=== PATIENT | female | born 1965 | race Caucasian/White ===

== ENCOUNTER 2020-01-14 13:56 | Outpatient (CLI) | payer BC, SELFPAY ==
--- NOTE | 2020-01-14 12:15 | DI.RAD_ITS ---
EXAM: XR HIP LT COMPLETE AP PELVIS CLINICAL HISTORY: pre op BROOK. TECHNIQUE: 2D digital imaging was performed. COMPARISON: CR CR HIP L 2V from 08/19/2019 FINDINGS: BONES: No acute fracture is present. No bony destructive lesion is seen. JOINTS: No dislocation present. Stable degenerative changes are seen about the hips bilaterally. SOFT TISSUE: Normal. IMPRESSION: Stable degenerative changes are seen in the hips. DATA REPOSITORY: RADIATION DOSE DELIVERED:
== END 2020-01-14 14:16 ==
PROVIDERS: PCP Family Medicine; Referring Provider Family Medicine; Visit Provider Physician Assistant
DX: M16.0 Bilateral primary osteoarthritis of hip (principal)
CPT/HCPCS: 73502

== ENCOUNTER 2020-01-22 02:55 | Outpatient (CLI) | payer BC, SELFPAY ==
[2020-01-22 10:29] LABS: HCT 37.6 % (36.0-46.0); HGB 12.6 g/dL (11.2-15.7); MCH 28.1 pg (27.0-33.0); MCHC 33.5 % (32.0-36.0); MCV 83.7 fL (80-95); Platelet Count 380 10^3/uL (130-400); RBC 4.49 10^6/uL (3.93-5.22); RDW-SD 40.1 fL; WBC 4.58 10^3/uL (4.4-10.8)
[2020-01-22 11:33] LABS: Anion Gap 5.7 mmol/L (3-11); BUN 12 mg/dL (7-18); CO2 27.3 mmol/L (21.0-32.0); CREATININE 0.83 mg/dL (0.55-1.02); Chloride 108 mmol/L (98-107); Glucose 85 mg/dL (74-106); Potassium 4.8 mmol/L (3.5-5.1); Sodium 141 mmol/L (136-145)
--- NOTE | 2020-01-25 14:37 | CMPROGNOTE_ITS ---
- If Service Date Differs Date of service: 01/25/20 Time of Service: 14:37 Care Management Progress Note S/O: PETE contacted Brenna over the phone she states she will need a new FWW. She has good support at home and does not anticipate any need for home health services. She states she does have a advance directive and will bring it to the hospital with her. She does have a question about transportation home by her spouse and wondering what time he should be here. PETE reviewed recovery time cee price. DSU will call and provide update after surgery and coordinate time with family member. P: Brenna will need a new FWW at time of discharge. PETE contacted [facility] Surgery and spoke with Joslyn ANGUIANO to review process.
== END 2020-01-22 03:15 ==
PROVIDERS: PCP Family Medicine; Visit Provider Student in an Organized Health Care Education/Training Program
DX: M94.252 Chondromalacia, left hip (principal); Z01.818 Encounter for other preprocedural examination; Z01.812 Encounter for preprocedural laboratory examination
CPT/HCPCS: 36415; 80048; 85027; 86850; 86900; 86901

== ENCOUNTER 2020-01-22 02:55 | Outpatient (CLI) | payer BC, SELFPAY ==
[2020-01-23 12:03] LABS: SARS-CoV-2 RNA Source Nasal/Nares
[2020-01-23 12:04] LABS: SARS-CoV-2 RNA Not Detected (NotDetected)
== END 2020-01-22 03:15 ==
PROVIDERS: PCP Family Medicine; Visit Provider Student in an Organized Health Care Education/Training Program
DX: Z11.59 Encounter for screening for other viral diseases (principal); Z01.818 Encounter for other preprocedural examination
CPT/HCPCS: U0003

== ENCOUNTER 2020-01-26 06:01 | Day surgery (SDC) | payer BC, SELFPAY ==
[2020-01-26] VITALS (7 sets, daily range): BP systolic 94–115; BP diastolic 46–58; PULSE 65–78; RESP 15–17; TEMP 36.3–36.6; O2SAT 96–99
[2020-01-26] MEDS: Acetaminophen 500 MG TAB 1000 MG PO (07:02)
[2020-01-26] MEDS: Lactated Ringers 1,000 ML 80 ML IV (07:03)
[2020-01-26] MEDS: Celecoxib 200 MG CAP 400 MG PO (07:03)
[2020-01-26] MEDS: ceFAZolin 2 GM/50 ML BAG IVPB (07:51)
[2020-01-26] MEDS: Ketorolac 30 MG/ML VIAL (08:55)
[2020-01-26] MEDS: Bupivacaine 0.25% Pres-Free 30 ML VIAL (08:55)
--- NOTE | 2020-01-26 09:05 | ROE_ITS ---
Date of service: 01/26/20 Time of Service: 09:05 Operative Note Operative Note DATE OF PROCEDURE: 01/26/20 PRE-OP DIAGNOSIS: Left Hip Femoroacetabular Impingement and Chondromalacia POST-OP DIAGNOSIS: same PROCEDURE: Left Anterior Total Hip Arthroplasty SURGEON: Silas Bailey NUCLEAR MEDICINE CHIEF TECHNOLOGIST: Brooklyn Ballard ANESTHESIA: spinal ESTIMATED BLOOD LOSS: 200 PATHOLOGY: none sent TOURNIQUET TIME: 0 COMPLICATIONS: None Patient was transported to: PACU Patient's condition: stable Implants: 1. Depuy [place] Acetabular Component, 50mm 2. Depuy Acetabular Liner, [id number] 3. Depuy Corail Short Neck Collared Femoral Stem, Size 11 4. Depuy Altrx Ceramic Femoral Head, Size 32+5mm Indications: I have seen Brenna Hillman in clinic for symptoms of hip arthritis, confirmed with radiographic findings. She has exhausted nonoperative methods and was having significant limitations in daily function and desired better function and less pain. I discussed the technical details of a hip replacement. I explained the risks of the procedure to include, but not limited to, bleeding, infection, pain, stiffness, fracture, damage to nerves and vessels, damage to muscles and tendons, loosening, instability, leg length inequality, need for repeat procedure, blood clot and cardiopulmonary demise. Despite these risks, Brenna Hillman elected to proceed. Findings: There was a focal area of complete loss of cartilage over the superior femoral head with wear of the superior acetabulum. Procedure Description: Brenna Hillman was greeted in the preoperative holding area where the correct side was identified and marked. The consent was reviewed with the patient and signed. The history and physical was updated. All questions were answered. She was taken back to the operating room. A spinal anesthestic was then administered. The feet were wrapped with cast padding and Coban and then placed into the boot liners and then into the boots. Care was taken to protect the skin and make sure the heels were fully down and the boots were stable. The patient was then positioned onto the HANA table. Both legs were held in a neutral position. SCDs were applied. The patient was then slid down onto a peroneal post. A preoperative AP pelvis was obtained to serve as a reference for determining leg lengths. Prophylactic antibiotics in the form of Cefazolin were administered. 1g of Tranxemic Acid was given intravenously within 30 minutes of incision. The left leg was then prepped with Chloraprep and draped in a standard fashion. A second prep with Chloraprep was performed prior to placement of a shower-curtain type drape with Iodine impregnated skin protection. A timeout to confirm correct identity, side and site, procedure, allergies, anesthesia, and medical concerns was performed. An obliquely oriented incision was made starting lateral to the ASIS and running distal over the Tensor Fascia Maria Del Rosario (TFL) muscle belly toward the fibular head, approximately 10cm. The skin and soft tissue was dissected sharply, through Preeti?s fascia, and to the fascia of the TFL. With the fascia and superior border of the IT band identified, the fascia was incised with a new knife just above any perforators from the IT band. The TFL muscle belly was bluntly dissected away from the fascia and moved laterally. The fat between TFL and rectus was identified to ensure the dissection was not within the TFL. Blunt dissection created space between abductors and the capsule and retractor was placed over the lateral femoral neck. The fibers of the rectus femoris tendon were identified and these were freed from the anterior capsule. A second cobra retractor was placed around the medial femoral neck. The TFL was further retracted laterally to show the deep fascia. Careful dissection through this layer identified three main crossing vessels of the lateral femoral circumflex. These were cauterized in multiple locations and then cut without any noticeable bleeding. The TFL was further released bluntly from the deep fascia to expose anterior hip capsule and fat The Slim orthopaedic retractor was then placed beneath the TFL and against sartorius and medial soft tissues to protect and retract the soft tissues. A T-capsulotomy was then performed starting at the superior lateral acetabulum and moving distally to the intertrochanteric ridge. These capsular flaps were tagged with a No. 1 Ethibond and elevated from within. The capsular flaps were released to the shoulder of the lateral neck and to the lesser trochanter to give excellent visualization of the proximal femur. A neck osteotomy was performed using an oscillating saw based on preoperative templates. This cut started in the shoulder and of the lateral neck and exited medially. The saw was at all times directed medially to avoid injury to the greater trochanter. 6cm of traction was applied to the leg and the osteotomy opened. The femoral head was removed with a corkscrew, making sure to protect the TFL on its exit. Traction was released after head removal. This was measured on the back table to determine the starting reamer size. Portions of the rectus obscuring visualization were minimally elevated off the superior acetabulum. An anterior retractor was placed over the anterior wall between capsule and labrum and attached to the Gripper retraction system. The femur was rotated to 90 degrees and medial capsule was fully released until the lesser trochanter was palpable and visible; the femur was returned to 30 degrees. A posterior retractor was placed similarly between capsule and labrum. This provided excellent visualization. The contents of the cotyloid fossa were removed with electrocautery and the labrum was removed with a knife. There was chondromalacia of the superior acetabulum. Acetabular reaming began with a 46mm reamer. This first reaming was directed anterior to posterior and medial to get down to the true floor. This was inspected and reamed until the true floor was reached. The anterior retractor was then released and entry and exit was provided by traction on the capsular flaps. I then reamed sequentially up to a 49mm reamer where good fit was obtained. The larger reamers were oriented based on anatomical reference of the anterior and lateral laureano to ensure proper abduction and anteversion. Positioning and size was confirmed with the fluoroscopy. A 50mm Depuy [place] acetabular component was selected. The acetabulum was reamed around the periphery with the selected acetabular size to prevent a rim fit. The deep tissues were irrigated. The acetabular component was then impacted in a position of about 40-45 degrees of abduction and 15-20 degrees of anteversion, using the patient?s anatomy as the ultimate landmark. Fluoroscopy was used to confirm this. There was excellent digital composer of the acetabular component and the inserting handle was removed. The acetabular liner, Depuy [id number] polyethylene liner, was inserted and lined up with the tines of the acetabular component. There was no soft tissue interposition. The liner was then impacted into position and confirmed to be well-seated. A portion of the torrey-articular cocktail was then injected around the acetabulum into the capsule and periosteum. This cocktail consisted of 50cc of 0.25% Bupivicaine and 20cc of Exparel and 30mg of Ketorolac. The leg was rotated to 120 degrees. Any remaining medial capsule was released until the lesser trochanter was easily palpable. A retractor was placed medially. The lateral capsule was further released into the shoulder to allow access to the greater trochanter. A Healy retractor was placed over the greater trochanter which allowed the trochanter to flip in front of the capsule for excellent exposure. The leg was brought down into maximal extension and 20 degrees of adduction while ensuring there was no impingement on the acetabulum. Any remnant capsule within the trochanter was released. Piriformis and obturator externis were identified and protected. There was excellent access to the proximal femur. The lateral neck remnant was removed with a rongeur. A blunt canal probe was used to identify the canal and trajectory for later broaching. A box osteotome initiated the broach course. A small curved rasp and a curved curette were used to work laterally. Broaching then began with a size 8 Corail broach. This was inserted manually around the trochanter and into the canal before mallet blows. The broach was seated to a few millimeters below the cut level based on the neck cut and the preoperative template. Sequential broaching was continued with the [employer]se pneumatic broaching device until a tight fit was obtained with good rotational control of the femur. A trial short neck collared neck was inserted along with a +5 trial head. The leg was brought out of extension and adduction and then reduced with traction and internal rotation. The leg was stable anteriorly in a position of 30 degrees of extension and 90 degrees of external rotation. Fluoroscopy was used to ensure there was no fracture and the stem was seated well. Leg lengths were checked with an AP pelvis and pelvic reference points. DP7 Digital navigation system was used to confirm appropriate positioning and leg length and offset. Once content with the desired offset and leg lengths, the leg was brought back into extension, external rotation and adduction. The periosteum and surrounding tissue was injected with remaining portion of the torrey-articular cocktail. The proximal femur was irrigated as well as the deep tissues. The Depuy Corail short neck collared stem, size 11, was then manually inserted into the proximal femur making sure to control rotation. It was then malleted into position with light blows, giving breaks to allow bone expansion and decrease risk of fracture. The selected Depuy Altrx Ceramic Head, size 32+5mm, was then placed onto the clean and dry trunnion and secured with impaction onto the tapered fit. The leg was brought back out of extension and adduction and reduced with traction and internal rotation. Stability was confirmed with no shuck at 90 degrees of external rotation and 30 degrees of extension. No impingement through range of motion arc. Final x-ray images were obtained with fluoroscopy to confirm adequate positioning and no intraoperative fracture. The deep tissues were thoroughly irrigated with Irrisept chlorhexadine solution. The second dose of TXA 1g was administered intravenously.The capsule was then reapproximated with the previously placed Ethibond sutures. The TFL fascia was finally closed with a No. 2 Stratafix, barbed suture. Deep tissues were then reapproximated with 0 Vicryl and a running 2-0 Vicryl. The skin was closed with a running 4-0 Monocryl in a subcuticular fashion. This was reinforced with skin glue. A Mepilex silver dressing was applied. At the end of the case, all counts were correct. Brenna Hillman was transferred to the hospital bed without difficulty and suffering no apparent complication. She has a good prognosis. Physical therapy will start today and without restrictions, weight-bearing as tolerated. Aspirin 81mg BID will be used for DVT prophylaxis.
--- NOTE | 2020-01-26 09:05 | DI.RAD_ITS ---
EXAM: XR HIP LT IN OR CLINICAL HISTORY: Femoroacetabular impingement, chondromalcia, L hip TECHNIQUE: 2D and realtime digital imaging was performed. COMPARISON: No exams were available for comparison FINDINGS: C-arm fluoroscopy was utilized by Dr. Bailey during placement of a left hip prosthesis. Hard copie s show the prosthesis in place. Fluoro time 55 seconds. IMPRESSION: RADIATION DOSE DELIVERED: Total DLP
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
== END 2020-01-26 13:30 | disposition home or self-care (01) ==
LOC: PDS 12:37 → DSU 01-29 12:51
PROVIDERS: PCP Family Medicine; Visit Provider Student in an Organized Health Care Education/Training Program
PROC: (CPT 27130; principal; 2020-01-26 07:30)
DX: M16.12 Unilateral primary osteoarthritis, left hip (principal); G43.909 Migraine, unspecified, not intractable, without status migrainosus
CPT/HCPCS: 27130; 20985; C1776; 97162; 97530; NC; 73501; J0690; J1100; J1885; J2250; J2405; J2704

== ENCOUNTER 2020-02-11 11:17 | Outpatient (CLI) | payer BC, SELFPAY ==
--- NOTE | 2020-02-11 09:45 | DI.RAD_ITS ---
EXAM: XR HIP LT COMPLETE AP PELVIS CLINICAL HISTORY: 1ST POST OP L BROOK TECHNIQUE: COMPARISON: CR XR HIP LT COMPLETE AP PELVIS from 01/14/2020 FINDINGS: Two views were obtained. There is a total hip joint prosthesis in position on the left. The compone nts appear well seated. There are mild degenerative changes of the right hip. No other significant bony abnormality seen. IMPRESSION: RADIATION DOSE DELIVERED: Total DLP
== END 2020-02-11 11:37 ==
PROVIDERS: PCP Family Medicine; Referring Provider Family Medicine; Visit Provider Student in an Organized Health Care Education/Training Program
DX: Z96.642 Presence of left artificial hip joint (principal); M16.11 Unilateral primary osteoarthritis, right hip
CPT/HCPCS: 73502

== ENCOUNTER 2020-04-21 11:46 | Outpatient (CLI) | payer BC, SELFPAY ==
--- NOTE | 2020-04-21 11:15 | DI.RAD_ITS ---
EXAM: XR HIP LT AP LAT ONLY CLINICAL HISTORY: eval L BROOK. TECHNIQUE: 2D digital imaging was performed. COMPARISON: CR XR HIP LT COMPLETE AP PELVIS from 02/11/2020 FINDINGS: Position alignment of the components of the left hip prosthesis remain stable with no fracture or loo sening. There is no radiographic evidence of osteomyelitis. IMPRESSION: DATA REPOSITORY: RADIATION DOSE DELIVERED:
--- NOTE | 2020-04-21 11:30 | DI.RAD_ITS ---
EXAM: XR LUMBAR SPINE COMPLETE CLINICAL HISTORY: eval L LBP. TECHNIQUE: 2D digital imaging was performed. COMPARISON: No exams were available for comparison FINDINGS: There is a left hip prosthesis. There is evidence of prior surgery at in the lower LS spine with removal of posterior osseous element s at L5. There is disc space narrowing at both L4-5 and L5-S1 levels. Other disc spaces exhibit nor mal height. No pars defects. Facet joints appear unremarkable. Sacroiliac joints unremarkable. IMPRESSION: DATA REPOSITORY: RADIATION DOSE DELIVERED:
== END 2020-04-21 11:47 | disposition home or self-care (01) ==
LOC: DIORS 11:46
PROVIDERS: PCP Family Medicine; Referring Provider Family Medicine; Visit Provider Student in an Organized Health Care Education/Training Program
DX: Z96.642 Presence of left artificial hip joint (principal); M54.5 Low back pain
CPT/HCPCS: 72110; 73502

== ENCOUNTER 2020-05-05 01:59 | Outpatient (CLI) | payer BC, SELFPAY ==
--- NOTE | 2020-05-05 07:00 | DI.MRI_ITS ---
EXAM: MR LUMBAR SPINE WO CLINICAL HISTORY: left lower back pain,m54.5. TECHNIQUE: Multiplanar multisequence MRI of the Lumbar spine was performed. COMPARISON: No exams were available for comparison FINDINGS: Bones: The last intervertebral disc space is designated the L5/S1 level for the numbering purpose of this examination. The vertebral body heights are well maintained. Alignment is satisfactory. Mild d egenerative endplate signal changes at L5-S1. Loss of signal of the disc at L4-5 and L5-S1. Cord: The conus tip ends at the T12-L1 level. It is of normal size and signal intensity. T12-L1: No disc herniations or bulges are present. No central spinal canal or neural foraminal stenos is. L1-2: No disc herniations or bulges are present. No central spinal canal or neural foraminal stenosis . L2-3: No disc herniations or bulges are present. No central spinal canal or neural foraminal stenosis . L3-4: No disc herniations or bulges are present. No central spinal canal or neural foraminal stenosis . L4-5: Findings suggestive of a partial laminectomy. Mild diffuse disc bulge. No significant central spinal canal stenosis. Mild bilateral neural foraminal narrowing. L5-S1: Partial laminectomy. Mild diffuse disc bulge. No significant central spinal canal or right n eural foraminal stenosis. Mild left neural foraminal narrowing. Soft tissues: The visualized SI joints and sacrum are well maintained. The paraspinal soft tissues ar e unremarkable. IMPRESSION: 1. Postsurgical changes in the lower lumbar spine. 2. Degenerative changes at L4-5 and L5-S1 resulting in mild bilateral neural foraminal narrowing at L 4-L5 and mild left neural foraminal narrowing at L5-S1. DATA REPOSITORY:
== END 2020-05-05 02:19 ==
PROVIDERS: PCP Family Medicine; Visit Provider Student in an Organized Health Care Education/Training Program
DX: M47.816 Spondylosis without myelopathy or radiculopathy, lumbar region (principal); M47.817 Spondylosis without myelopathy or radiculopathy, lumbosacral region; M48.061 Spinal stenosis, lumbar region without neurogenic claudication; M48.07 Spinal stenosis, lumbosacral region
CPT/HCPCS: 72148

== ENCOUNTER 2020-05-05 03:41 | Outpatient (CLI) | payer BC, SELFPAY ==
[2020-05-05 14:35] LABS: C-Reactive Protein 0.26 mg/dL (0.0-0.3)
[2020-05-05 15:48] LABS: ESR 1 mm/hr (<or=30)
== END 2020-05-05 03:42 | disposition home or self-care (01) ==
LOC: LBO 03:41
PROVIDERS: PCP Family Medicine; Visit Provider Student in an Organized Health Care Education/Training Program
DX: M54.5 Low back pain (principal); Z96.642 Presence of left artificial hip joint
CPT/HCPCS: 36415; 85652; 86140

== ENCOUNTER 2022-02-14 01:12 | Outpatient (CLI) | payer MEDICARE, OTHER, SELFPAY ==
[2022-02-14 09:14] LABS: ESR < 1 mm/hr (0-30)
[2022-02-14 09:25] LABS: C-Reactive Protein 0.22 mg/dL (0.0-0.3)
== END 2022-02-14 01:32 ==
PROVIDERS: PCP Family Medicine; Visit Provider Student in an Organized Health Care Education/Training Program
DX: M25.552 Pain in left hip (principal); T84.52XA Infection and inflammatory reaction due to internal left hip prosthesis, initial encounter; Z96.642 Presence of left artificial hip joint
CPT/HCPCS: 85652; 86140

== ENCOUNTER → 2022-02-14 01:13 | Outpatient (CLI) | payer MEDICARE, OTHER, SELFPAY ==
--- NOTE | 2022-02-14 06:30 | DI.CT_ITS ---
Exam(s) CT LOWER EXTREMITY LT WO EXAM: CT LOWER EXTREMITY LT WO CLINICAL HISTORY: LT HIP PAIN, ? INFECTION,H/O LT HIP ARTHROPLASTY,M25.552,Z96.642,T84.52XA. TECHNIQUE: Imaging Protocol: Axial computed tomography images with coronal and sagittal reformatted images were created and reviewed. CONTRAST MATERIAL: None COMPARISON: Plain films of 04/21/2020 were reviewed. There do not appear to be more recent plain fi lms of the left hip available. FINDINGS: OSSEOUS: There is a left hip prosthesis. There is no evidence of obvious fracture nor loosening of the femora l component of the prosthesis. Also no evidence of osteomyelitis. The femoral component appears wel l seated. There are no fractures in the acetabulum. There is a mild lucent area around medial aspect of the ac etabular cup. No fracture nor cortical dehiscence at this level. No evidence of osteomyelitis. The ipsilateral pubic rami appear unremarkable. SOFT TISSUES: No abnormal finding in the left iliopsoas. No muscle atrophy around the left hip. No abnormal fluid collection around the left hip. OTHER: There is a subcutaneous buttocks stimulator device seen in the superior aspect of field of view of th is study. There is also evidence of left laminectomy at what is probably L5, partially included in the field of view. IMPRESSION: No obvious findings around the femoral component of the left hip prosthesis. Mild findings around the acetabular cup component, as described above. RADIATION DOSE DELIVERED: 337.19mGy.cm Total DLP DATA REPOSITORY: All CT scans at this facility are submitted to the National Radiology Data Registry (NRDR) Dose Index Registry (DIR) with the [employer] (ACR). RADIATION OPTIMIZATION: All CT scans at this facility use at least one of these dose optimization te chniques: automated exposure control; mA and/or kV adjustment per patient size (includes targeted exa ms where dose is matched to clinical indication); or iterative reconstruction.
--- NOTE | 2022-02-14 06:42 | DI.NM_ITS ---
Exam(s) NM BONE SCAN 3 PHASE EXAM: NM BONE SCAN 3 PHASE CLINICAL HISTORY: LT HIP PAIN, ? INFECTION, LOOSENING, M25.552,T84.52XA. TECHNIQUE: Performed with triple phase technique Injected Dose: 25 mCi Tc-99m MDP COMPARISON: CT CT LOWER EXTREMITY LT WO from 02/14/2022 FINDINGS: Perfusion: No asymmetric flow demonstrated in either hip and proximal thighs. Blood Pool: No abnormal focal uptake evident in the hips and upper thighs. Delayed phase images: There is a photopenic zone in the left hip consistent with the presence of a prosthesis. There is no abnormal uptake seen in the region of the acetabulum. There is mild asymmetric uptake se en in the proximal left femur corresponding to the region of the distal aspect of the femoral stem. This is only evident on the delayed images. There is no abnormal radiopharmaceutical uptake in the r egion of the acetabular cup. With respect to the remainder of the skeleton on the delayed phase imaging, there is no abnormal osse ous uptake in the knees and ankles. Also no abnormal focal uptake seen in the spinal column includin g the cervical spine. No abnormal uptake in the skull and rib cages nor in the sternum. No abnormal uptake in the bones of the upper and lower extremities nor significant uptake in the ankles and feet . IMPRESSION: 1. This is essentially a normal study with the exception of some mild focal radiopharmaceutical upta ke in the proximal half of the left femur corresponding to the region of the lower aspect of the femo ral stem of the left hip prosthesis. This is only evident on the delayed phase imaging. There is no abnormal uptake around the acetabular cup component where there is a subtle well-defined circumferen tial lucent area seen on the CT scan. 2. Remainder of the entire skeleton is unremarkable. DATA REPOSITORY:
== END ==
PROVIDERS: PCP Family Medicine; Visit Provider Student in an Organized Health Care Education/Training Program
DX: M25.552 Pain in left hip (principal); T84.52XA Infection and inflammatory reaction due to internal left hip prosthesis, initial encounter; Z96.642 Presence of left artificial hip joint
CPT/HCPCS: 85652; 73700; 78315; 86140

== ENCOUNTER → 2022-03-09 09:18 | Outpatient (BNVA) | payer MEDICARE, OTHER, SELFPAY | PROVIDERS: PCP Family Medicine; Referring Provider Family Medicine; Visit Provider Student in an Organized Health Care Education/Training Program | DX: M25.552 Pain in left hip (principal); Z96.642 Presence of left artificial hip joint; G89.29 Other chronic pain | CPT/HCPCS: 99215 ==

== ENCOUNTER 2022-03-15 03:35 | Outpatient (CLI) | payer MEDICARE, OTHER, SELFPAY ==
--- NOTE | 2022-03-15 08:00 | DI.RAD_ITS ---
Exam(s) RF JOINT INJECTION FLUORO GUID EXAM: RF JOINT INJECTION FLUORO GUID CLINICAL HISTORY: L HIP INJ UNDER FLUORO,lt hip pain, h/o total lt hip,m25.52,z96.642 TECHNIQUE: Fluoroscopy provided. Radiologist not present. CONTRAST MATERIAL: None COMPARISON: No exams were available for comparison FINDINGS: Fluoroscopy was provided for Dr. Bailey during left hip injection. Please refer to the procedure report for complete details. Cumulative Dose: ayleen Trevino=7.02 mGy IMPRESSION: RADIATION DOSE DELIVERED:
[2022-03-15] MEDS: Bupivacaine 0.5% Pres-Free 10 ML VIAL IJ (15:01)
--- NOTE | 2022-03-15 19:38 | W.PROCNOTE ---
Date of service: 03/15/22 Time of Service: 14:40 Procedure Note Date of procedure: 03/15/22 Procedure: Left Hip Injection with Fluoroscopic Guidance Surgeon/Proceduralist/Physician: Silas Bailey Procedure Diagnosis: Left Hip Pain after BROOK Procedure Indications: Brenna has had worsening pain of the LEFT hip and groin and thigh following BROOK. Noninvasive measures have been tried, but the pain has worsened. Therefore, an anesthetic challenge, performed under fluoroscopy, was recommended. I had discussed the risks of the procedure and the patient elected to proceed. Procedure Description: Brenna was greeted in the flouroscopy room. The correct side was identified and the consent was reviewed with the patient and signed. The patient was then placed in the supine position on the fluoroscopy table. The LEFT hip was then prepped with Chloraprep. The anterolateral injection starting point was identiifed by bony landmarks and fluoroscopy. The skin and soft tissue in the tract of the injection was anesthetized with 1% Lidocaine. A spinal needle was then inserted deep into the hip joint at the level of the lateral femoral head until contact was made with the femoral head component. I aspirated 0.5cc of normal, clear synovial fluid, confirming intra-articular placemetn. Then, the hip was injected with 8cc of 0.5% Bupivicaine and 3cc of 1% Lidocaine. A bandaid was placed on the injection site. The patient tolerated the procedure well and noted improvement in pre-injection pain.
== END 2022-03-15 03:55 ==
PROVIDERS: PCP Family Medicine; Visit Provider Student in an Organized Health Care Education/Training Program
DX: M25.552 Pain in left hip (principal); Z96.642 Presence of left artificial hip joint
CPT/HCPCS: 20610; 77002

== ENCOUNTER → 2022-07-19 08:21 | Outpatient (BNVA) | payer MEDICARE, OTHER, SELFPAY | PROVIDERS: PCP Family Medicine; Referring Provider Family Medicine; Visit Provider Student in an Organized Health Care Education/Training Program | DX: T84.84XA Pain due to internal orthopedic prosthetic devices, implants and grafts, initial encounter (principal); S76.912A Strain of unspecified muscles, fascia and tendons at thigh level, left thigh, initial encounter; X58.XXXA Exposure to other specified factors, initial encounter; Z96.642 Presence of left artificial hip joint | CPT/HCPCS: 99215 ==

== ENCOUNTER 2022-08-07 07:08 | Day surgery (SDC) | payer MEDICARE, SELFPAY ==
[2022-08-07] VITALS (10 sets, daily range): BP systolic 98–128; BP diastolic 53–79; PULSE 59–68; RESP 13–19; TEMP 36–36.6; O2SAT 97–100; BMI 22.4
[2022-08-07] MEDS: Celecoxib 200 MG CAP 400 MG PO (07:57)
[2022-08-07] MEDS: Lactated Ringers 1,000 ML 80 ML IV (07:57)
[2022-08-07] MEDS: Acetaminophen 500 MG TAB 1000 MG PO (07:57)
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
[2022-08-07] MEDS: ceFAZolin 2 GM/50 ML BAG IVPB (09:55)
[2022-08-07] MEDS: HYDROmorphone 2 MG/ML SYR IVP ×3 (11:43→12:05)
[2022-08-07] MEDS: Normal Saline 10 ML VIAL IJ (11:43)
--- NOTE | 2022-08-07 12:47 | W.PM.OP ---
Date of service: 08/07/22 Time of Service: 11:00 Operative Note Operative Note DATE OF PROCEDURE: 08/07/22 PRE-OP DIAGNOSIS: Painful left hip replacement, iliopsoas impingement POST-OP DIAGNOSIS: same PROCEDURE: Left hip synovectomy with iliopsoas release SURGEON: Silas Bailey MACHINE FASTENER: Zoila Lake ANESTHESIA TYPE: Spinal Refer to Anesthesia Record ESTIMATED BLOOD LOSS: 50 PATHOLOGY: none sent TOURNIQUET TIME: 0 COMPLICATIONS: None Patient was transported to: PACU Patient's condition: stable Implants: DePuy 32+5 ceramic head with titanium sleeve Indications: I have seen Brenna in clinic for symptoms of anterior groin pain following hip replacement. She has exhausted nonoperative methods and was having significant limitations in daily function and desired better function and less pain. I discussed the technical details of synovectomy, debridement of the hip with iliopsoas release. I explained the risks of the procedure to include, but not limited to, bleeding, infection, pain, stiffness, weakness, damage to nerves and vessels, damage to muscles and tendons, instability, need for repeat procedure, blood clot and cardiopulmonary demise. Despite these risks, Brenna elected to proceed. Findings: There was significant amount of inflammation seen within the hip joint. There is a chronic defect of the anterior hip capsule and significant scarring seen around the medial aspect of the joint with scarring adjacent to the articulation of the head and acetabulum. There was inflammatory changes anteriorly and the iliopsoas was released. Procedure Description: Brenna was greeted in the preoperative holding area where the correct side was identified and marked. The consent was reviewed with the patient and signed. The history and physical was updated. All questions were answered. She was taken back to the operating room. A general anesthetic was then administered. The feet were wrapped with cast padding and Coban and then placed into the boot liners and then into the boots. Care was taken to protect the skin and make sure the heels were fully down and the boots were stable. The patient was then positioned onto the HANA table. Both legs were held in a neutral position. SCDs were applied. The patient was then slid down onto a peroneal post. Prophylactic antibiotics in the form of Cefazolin were administered. 1g of Tranxemic Acid was given intravenously within 30 minutes of incision. The left leg was then prepped with Chloraprep and draped in a standard fashion. A second prep with Chloraprep was performed prior to placement of a shower-curtain type drape with Iodine impregnated skin protection. A timeout to confirm correct identity, side and site, procedure, allergies, anesthesia, and medical concerns was performed. An obliquely oriented incision was made utilizing the previous incision and extending it proximally distally by 1 cm. The skin and soft tissue was dissected sharply but then bluntly all the way down to Preeti's fascia. She did have some continued numbness over the lateral part of the thigh and therefore I did evaluate for any branches of the lateral from cutaneous nerve. There did appear to be a branch of the nerve which was much more lateral than I would have anticipated. Nevertheless, I dissected out the soft tissue and scar tissue and moved medially. I then sharply incised Preeti?s fascia and then the fascia of the TFL. With the fascia and superior border of the IT band identified, the fascia was incised with a new knife just above any perforators from the IT band. The TFL muscle belly was bluntly dissected away from the fascia and moved laterally. The fat between TFL and rectus was identified to ensure the dissection was not within the TFL. Blunt dissection created space between abductors and the capsule and retractor was placed over the lateral femoral component. There was significant scar tissue in this area with adhesions between the capsule and the abductors. This was sharply to grade interval between those tissues. There was a defect of the anterior capsule which was also present. The fibers of the rectus femoris tendon were identified and these were freed from the anterior capsule. A second cobra retractor was placed around the medial femoral neck. The TFL was further retracted laterally to show the deep fascia. The Slim orthopaedic retractor was then placed beneath the TFL and against sartorius and medial soft tissues to protect and retract the soft tissues. A T-capsulotomy was then performed starting at the superior lateral acetabulum and moving distally to the intertrochanteric ridge through the chronic defect of the capsule from the initial surgery. The capsular flaps were released to the shoulder of the lateral neck junction with the greater trochanter and to the lesser trochanter to give excellent visualization of the proximal femur. There was little adhesion to the anterior capsule to the anterior part of the femur. The bone appeared to be grown into the implant without any signs of loosening. The capsule was released all the way around the lesser trochanter. The leg was rotated to 120 degrees and then dislocated out of the hip and elevated. The ceramic head was removed with a bone tamp. With a head all the way I then performed a synovectomy. There was significant amount of synovitis and inflammatory tissue somewhat hemosiderin laden throughout the hip. This was taken around circumferentially to remove any excess synovium. There was notable scarring around the medial aspect of the cup where the scar tissue impinged on the interface between the acetabular liner and femoral head. Once again, any inflamed tissue was excised. The capsule was released from around the acetabulum for full visualization. There was no sign of loosening. Based on the preoperative symptoms of iliopsoas impingement I then released the iliopsoas from the lesser trochanter. This was done under direct visualization and confirmed by direct inspection and palpation of the lesser trochanter. Once again, hip joint was inspected. There showed no signs of loosening. There showed no signs of aggressive synovitis or scarring. Deep tissues of the hip were then injected with a periarticular cocktail this cocktail consisted of 123mg of Ropivacaine, 0.25mg of Epinephrine, 0.04mg of Clonidine, and 15mg of Ketorolac, diluted to 50cc. The hip was then thoroughly irrigated with Surgiphor, betadine solution. This was allowed to sit in the wound for 3 minutes before being thoroughly irrigated out with normal saline. With the leg externally rotated and extended I then placed a DePuy Ultrex ceramic 32+5 mm head with titanium sleeve. The hip was then reduced. It was tested for stability which showed stability to 60 degrees of rotation with 45 degrees of extension. Then, the capsule was then reapproximated with #1 Vicryl. The TFL fascia was finally closed with a No. 2 Stratafix, barbed suture ensuring no encapsulation of other deep tissue which may contain nerve structures nor the tissue dissected earlier in the case. Deep tissues were then reapproximated with 0 Vicryl and a running 2-0 Vicryl. The skin was closed with a running 4-0 Monocryl in a subcuticular fashion. This was reinforced with skin glue. A Mepilex border without silver dressing was applied. At the end of the case, all counts were correct. Brenna was transferred to the hospital bed without difficulty and suffering no apparent complication. Brenna has a gaurded prognosis. Physical therapy will start today and without restrictions, weight-bearing as tolerated. Aspirin 81mg BID will be used for DVT prophylaxis.
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
--- NOTE | 2022-08-07 13:53 | W.ANESPOSTOP ---
Postoperative Evaluation Date, Time and Location Date Performed: 08/07/22 Time Performed: 13:00 Patient Location: Day Surgery Unit Vital Signs Most Recent Imported Vital Signs: Most Recent Vital Signs Temp Pulse Resp BP Pulse Ox 36.1 C L 65 16 112/59 L 98 08/07/22 13:00 08/07/22 13:00 08/07/22 13:00 08/07/22 13:00 08/07/22 13:00 Pain Score Most Recent Pain Score: Most Recent Pain Score Pain Level 6 08/07/22 13:00 Assessment Mental Status: Awake (Alert & Oriented to Patient Baseline) Airway and Respiratory Function: Patent airway with normal (patient baseline) respiratory exam Cardiovascular Function: Hemodynamically Stable Hydration Status: Adequately Hydrated Nausea & Vomiting: No Nausea or Vomiting Pain: Pt. Denies Any Pain Peripheral Nerve Block: Patient did not receive a nerve block
--- NOTE | 2022-08-07 14:38 | PDOC.DSDIS_ITS ---
Date of service: 08/07/22 Time of Service: 14:27 Discharge Plan Disposition Patient Disposition: Home Condition: Good Discharge Details Reason For Visit: Painful left BROOK; Iliopsoas strain Attending Provider: Silas Bailey Primary Care Provider: Yohan Mann Home Meds and New Rx's Prescriptions: New acetaminophen 500 mg tablet 1,000 mg PO Q8H PRN Qty: 90 0RF Rx Instructions: Take two tablets up to every 8 hours as needed for pain aspirin 81 mg tablet,delayed release (DR/EC) 81 mg PO BID 30 Days Qty: 60 0RF celecoxib [Celebrex] 200 mg capsule 200 mg PO BID PRNQty: 60 0RF Rx Instructions: Take one tablet twice daily for pain and inflammation docusate sodium [Colace] 100 mg capsule 100 mg PO BID Qty: 30 0RF pantoprazole 40 mg tablet,delayed release (DR/EC) 40 mg PO DAILY 14 Days Qty: 14 0RF oxycodone 5 mg tablet 5 mg PO Q6H PRNQty: 12 0RF Rx Instructions: Take one tablet up to every 6 hours as needed for severe postoperative pain Continued topiramate [Topamax] 25 mg capsule, sprinkle 25 mg PO BID estradiol 1 mg tablet 1 mg PO DAILY Rx Instructions: off 1 week; repeat cycle mupirocin 2 % ointment 1 applic topical BID Qty: 15 0RF Rx Instructions: Apply to both nostrils twice daily. pregabalin 150 mg capsule 150 mg PO TID Patient Comments: TAKE 1 CAPSULE BY MOUTH THREE TIMES DAILY Discontinued celecoxib 200 mg capsule 200 mg Patient Comments: TAKE 1 CAPSULE BY MOUTH TWICE DAILY acetaminophen 500 mg tablet 1,000 mg PO Q8H PRN (Reason: pain) Qty: 90 3RF Discharge Instructions Additional Instructions: Hip Synovectomy and Iliopsoas Release Discharge Instructions Activity: The most important activity is to walk. You should try to take short walks a few times a day. You have no restrictions on movement or positioning, but do not try to force what you do. You will find some stiffness and weakness with hip flexion (lifting your knee). Do not try to strengthen this too early, continue to practice walking and stairs and this will come. - Outpatient physical therapy can be helpful to help return you to a normal gait and improve your flexibility and strength. This can start around 2 weeks. For some patients, it?s not necessary. Usually this is determined at the time of discharge or at the first post-operative visit. - You should wear the FANY hose on both legs for 2 weeks. Dressing: Keep the surgical dressing in place for at least one week. After the first week it may be removed and replace with light gauze and tape or nothing. It may get wet after 3 days but avoid soaking the dressing. If it gets wet, just lightly pat dry. It is important to always keep some gauze between skin folds, especially when you are sitting. Spend some time with the wound exposed when you are lying flat as the incision does wrinkle onto itself. Medications: - You should take Tylenol and an anti-inflammatory Celebrex as your primary pain control medications. If the Celebrex is too expensive or not covered, please call the office for another alternative (Advil/Ibuprofen or Naproxen/Aleve). - You have been prescribed a stronger pain medication Oxycodone for breakthrough pain, take as needed as prescribed. - You have also been prescribed a stomach acid reduction agent Pantoprozole to help reduce stomach acid and reflux. - You will be taking Aspirin 81mg twice a day for DVT prevention unless instructed otherwise. - If you have constipation you should take Colace (which has been prescribed) or Miralax (which is available [id number]). It takes most people 3-4 days to have a bowel movement. Follow-up: 2 weeks Stand Alone Forms: Anesthesia Discharge Inst., [facility]tar Patiño ([facility]) Referrals: Silas Bailey MD [ [facility] STAFF PHYSICIAN] - 08/20/22 1:45 pm Equipment/Supplies: Walker Activity:: Activity as Tolerated Remove Dressings/Wound Care:: Do Not Remove Shower/Bathe:: Cover Diet:: As Tolerated Discharge Orders Discharge Orders: Discharge Order (Routine); Ordered 08/07/22 Ordered By: Silas Bailey
== END 2022-08-07 14:30 | disposition home or self-care (01) ==
PROVIDERS: PCP Family Medicine; Visit Provider Student in an Organized Health Care Education/Training Program
PROC: (CPT 27130; principal; 2022-08-07 10:30)
DX: T84.84XA Pain due to internal orthopedic prosthetic devices, implants and grafts, initial encounter (principal); M25.852 Other specified joint disorders, left hip; Z96.642 Presence of left artificial hip joint
CPT/HCPCS: 27036; 97116; 97162; J0690; J1100; J1170; J2250; J2405; J2704

== ENCOUNTER → 2022-08-20 13:39 | Outpatient (BNVA) | payer MEDICARE, SELFPAY | PROVIDERS: PCP Family Medicine; Referring Provider Family Medicine | DX: Z47.1 Aftercare following joint replacement surgery (principal); Z96.642 Presence of left artificial hip joint; G89.29 Other chronic pain ==

== ENCOUNTER → 2022-09-17 14:01 | Outpatient (BNVA) | payer MEDICARE, SELFPAY | PROVIDERS: PCP Family Medicine; Referring Provider Family Medicine; Visit Provider Student in an Organized Health Care Education/Training Program | DX: Z47.1 Aftercare following joint replacement surgery (principal); Z96.642 Presence of left artificial hip joint; M25.552 Pain in left hip; G89.29 Other chronic pain ==

== ENCOUNTER → 2022-11-05 12:52 | Outpatient (BNVA) | payer MEDICARE, SELFPAY | PROVIDERS: PCP Family Medicine; Referring Provider Family Medicine; Visit Provider Student in an Organized Health Care Education/Training Program | DX: Z47.1 Aftercare following joint replacement surgery (principal); Z96.642 Presence of left artificial hip joint; M25.552 Pain in left hip; G89.29 Other chronic pain ==

== ENCOUNTER → 2023-08-12 13:11 | Outpatient (BNVA) | payer MEDICARE, SELFPAY | PROVIDERS: PCP Family Medicine | DX: M25.552 Pain in left hip (principal); G89.29 Other chronic pain; Z96.642 Presence of left artificial hip joint | CPT/HCPCS: 99213 ==

== ENCOUNTER 2024-08-03 08:57 | Outpatient (CLI) | payer MEDICARE, SELFPAY ==
--- NOTE | 2024-08-03 08:30 | DI.RAD_ITS ---
Exam(s) XR HIP LT AP LAT ONLY EXAM: XR HIP LT AP LAT ONLY CLINICAL HISTORY: F/U L BROOK. TECHNIQUE: 2D digital imaging was performed. COMPARISON: CR XR HIP LT AP LAT ONLY from 04/21/2020 FINDINGS: Two views There is stable position alignment of the components of the left hip prosthesis. No fracture or loos ening evident. No evidence of osteomyelitis. IMPRESSION: Stable satisfactory appearance. DATA REPOSITORY: RADIATION DOSE DELIVERED:
== END 2024-08-03 08:58 | disposition home or self-care (01) ==
LOC: DIORS 08:58
PROVIDERS: PCP Family Medicine; Referring Provider Family Medicine; Visit Provider Student in an Organized Health Care Education/Training Program
DX: M75.82 Other shoulder lesions, left shoulder (principal); Z96.642 Presence of left artificial hip joint; S76.012A Strain of muscle, fascia and tendon of left hip, initial encounter; S76.912A Strain of unspecified muscles, fascia and tendons at thigh level, left thigh, initial encounter; M25.552 Pain in left hip; G70.00 Myasthenia gravis without (acute) exacerbation
CPT/HCPCS: 99214; 73502

== ENCOUNTER → 2024-08-19 12:51 | Outpatient (BNVA) | payer MEDICARE, SELFPAY | PROVIDERS: PCP Family Medicine; Referring Provider Family Medicine; Visit Provider Student in an Organized Health Care Education/Training Program | DX: M25.512 Pain in left shoulder (principal); D16.02 Benign neoplasm of scapula and long bones of left upper limb | CPT/HCPCS: 99214 ==